=== PATIENT | female | born 1935 | race Caucasian/White ===

== ENCOUNTER 2017-04-23 23:58 | Inpatient (IN) | payer OTHER ==
--- NOTE | 2017-04-24 01:59 | PDOC ---
History of Present Illness - History of Present Illness Initial Comments: 04/24/17 02:08 Patient is an 82 F who was BIBA from [facility], with PMHx of liver transplant, osteoarthritis, anxiety, dementia, anemia, and HTN. The long term reports patient has abdominal pain. However, patient only complains of headache at this time. Denies CP, SOB, nausea, vomiting, or any other complaints. Social Hx: alcohol abuse PCP: Andie Freedman <Narcisa Lucas - Last Filed: 04/24/17 02:20> - General History Source: Patient <NaomiJose J - Last Filed: 04/24/17 19:48> - General Chief Complaint: Pain, Acute Stated Complaint: ABDOMINAL PAIN Time Seen by Provider: 04/24/17 01:54 Past History <Nracisa Lucas - Last Filed: 04/24/17 02:20> - Suicide/Smoking/Psychosocial Hx Smoking History: Unknown if ever smoked Have you smoked in the past 12 months: No Information on smoking cessation initiated: No Hx Alcohol Use: No Drug/Substance Use Hx: No <Jose J Salgado - Last Filed: 04/24/17 19:48> - Past Medical History Allergies/Adverse Reactions: Allergies Allergy/AdvReac Type Severity Reaction Status Date / Time Penicillins Allergy Verified 04/24/17 00:13 Home Medications: Ambulatory Orders Aa/Hydrolyzed Collagen, Whey [Lps 15-30 Liquid] 30 ml PO BID 04/24/17 Azathioprine [Imuran -] 50 mg PO DAILY 04/24/17 Bimatoprost [Lumigan] 1 drop IO HS 04/24/17 Brimonidine Tartrate [Alphagan 0.2% -] 1 drop OU TID 04/24/17 Citalopram Hydrobromide [Citalopram HBr] 20 mg PO DAILY 04/24/17 Cyclosporine [Sandimmune] 25 mg PO BID 04/24/17 Donepezil HCl [Aricept -] 10 mg PO HS 04/24/17 Dorzolamide HCl/Timolol Maleat [Cosopt Eye Drops] 1 drop OU BID 04/24/17 Fluticasone Prop 0.05% Nasal [Flonase -] 1 - 2 spray NS DAILY 04/24/17 Folic Acid 1 mg PO DAILY 04/24/17 Metoprolol Succinate [Toprol Xl] 25 mg PO DAILY 04/24/17 Multivitamin [Multiple Vitamins] 1 each PO DAILY 04/24/17 Nifedipine ER [Procardia Xl -] 90 mg PO DAILY 04/24/17 Ranitidine HCl 150 mg PO BID 04/24/17 Thiamine HCl [Vitamin B-1] 50 mg PO DAILY 04/24/17 Review of Systems - Review of Systems Comments:: 04/24/17 02:10 CONSTITUTIONAL: Absent: fever, no chills, no fatigue EYES: Absent: visual changes ENT: Absent: ear pain, no sore throat CARDIOVASCULAR: Absent: chest pain, no palpitations RESPIRATORY: Absent: cough, no SOB GI: Absent: abdominal pain, no nausea, no vomiting, no constipation, no diarrhea GENITOURINARY: Absent: dysuria, no frequency, no hematuria MUSCULOSKELETAL: Absent: back pain, no arthralgia, no myalgia SKIN: Absent: rash NEURO: Present: headache <Narcisa Lucas - Last Filed: 04/24/17 02:20> *Physical Exam - Vital Signs Last Vital Signs Temp Pulse Resp BP Pulse Ox 98.7 F 88 20 133/85 99 04/24/17 00:21 04/24/17 00:21 04/24/17 00:21 04/24/17 00:21 04/24/17 00:21 - Physical Exam Comments: 04/24/17 02:09 GENERAL: Well-appearing, well-nourished. No apparent distress. HEENT: Normocephalic, atraumatic. PERRL, EOM intact. CARDIOVASCULAR: Normal S1, S2. Regular rate and rhythm. PULMONARY: Clear to auscultation bilaterally. ABDOMEN: Soft, non-distended, non-tender. EXTREMITIES: Normal ROM in all four extremities. No gross deformities. SKIN: Warm, dry. No rash NEUROLOGICAL: Slight tremors. Alert, awake, oriented x3. Answers questions appropriately . <Narcisa Lucas - Last Filed: 04/24/17 02:20> - Vital Signs Last Vital Signs Temp Pulse Resp BP Pulse Ox 98.7 F 88 20 133/85 99 04/24/17 00:21 04/24/17 00:21 04/24/17 00:21 04/24/17 00:21 04/24/17 00:21 <Jose J Salgado - Last Filed: 04/24/17 19:48> Heart Score/ECG Review - ECG Intrepretation Comment:: 04/24/17 02:20 Normal sinus rhythm Abnormal QRS-T angle, consider primary T wave abnormality Vent rate 99 bpm <Narcisa Lucas - Last Filed: 04/24/17 02:20> ED Treatment Course - LABORATORY CBC & Chemistry Diagram: 04/24/17 14:35 04/24/17 14:35 <Jose J Salgado - Last Filed: 04/24/17 19:48> Medical Decision Making - Medical Decision Making 04/24/17 19:45 Dr. Salgado: The scribe's documentation has been prepared under my direction and personally reviewed by me in its entirery. I confirm that the note above accurately reflects all work, treatment, procedures, and medical decision making performed by me. 04/24/17 19:46 patient with complaint of Abdominal pain for the NH. Pt with h/o alcohol abuse , presented tremulous. Pt admitted to [facility] for further care <Jose J Salgado - Last Filed: 04/24/17 19:48> *DC/Admit/Observation/Transfer - Attestations Scribe Attestion: 04/24/17 02:11 Documentation prepared by Narcisa Lucas, acting as medical supervisor for Jose J Salgado MD. <Narcisa Lucas - Last Filed: 04/24/17 02:20> - Discharge Dispostion Admit: Yes <Jose J Salgado - Last Filed: 04/24/17 19:48> Diagnosis at time of Disposition: Alcohol withdrawal, Ileitis, terminal, Colitis - Discharge Dispostion Condition at time of disposition: Stable
[2017-04-24] MEDS ORDERED: LORazepam 2 MG/ML SDV VIAL ONE (02:09)
[2017-04-24 02:31] LABS: BASO % 0.4 % (0-2.0); EOS % 0.2 % (0-4.5); HEMATOCRIT 37.3 % (32.4-45.2); HEMOGLOBIN 12.2 GM/dL (10.7-15.3); LYMPH % 3.9 % (8-40); MCH 32.1 pg (25.7-33.7); MCHC 32.8 g/dl (32.0-36.0); MEAN CELL VOLUME 97.9 fl (80-96); MEAN PLT VOLUME 9.1 fl (7.5-11.1); MONO % 6.9 % (3.8-10.2); NEUT % 88.6 % (42.8-82.8); PLATELET COUNT 207 K/MM3 (134-434); RBC 3.81 M/mm3 (3.60-5.2); RDW 14.8 % (11.6-15.6); WHITE BLOOD COUNT 11.1 K/mm3 (4.0-10.0)
[2017-04-24 02:44] LABS: INR 1.04 (0.82-1.09); PROTHROMBIN TIME (PATIENT) 11.7 SEC (9.98-11.88)
[2017-04-24 02:54] LABS: ALBUMIN 3.1 g/dl (3.4-5.0); ANION GAP 11 (8-16); BILIRUBIN,TOTAL 0.5 mg/dL (0.2-1.0); BLOOD UREA NITROGEN 41 mg/dL (7-18); CALCIUM 8.7 mg/dL (8.5-10.1); CHLORIDE 104 mmol/L (98-107); CO2 26 mmol/L (21-32); CREATININE 1.9 mg/dL (0.55-1.02); GLUCOSE,RANDOM 94 mg/dL (74-106); MAGNESIUM 2.6 mg/dL (1.8-2.4); POTASSIUM 4.8 mmol/L (3.5-5.1); SGOT/AST 193 U/L (15-37); SODIUM 141 mmol/L (136-145); TOT PROT 9.1 g/dl (6.4-8.2)
[2017-04-24 02:57] LABS: ALK PHOS 302 U/L (45-117); LIPASE 202 U/L (73-393); N-TERMINAL BNP 489.77 pg/ml (5-450); SGPT/ALT 131 U/L (12-78)
[2017-04-24] MEDS ORDERED: SODIUM CHLORIDE 1,000 ML IV STA ×2 (03:10→05:21)
[2017-04-24 03:38] LABS: ACETONE SERUM NEGATIVE (NEGATIVE)
[2017-04-24] MEDS ORDERED: LEVOFLOXACIN 500 MG IVPB 500 MG/100 ML BAG IVPB ONE ×2 (06:07→06:31)
[2017-04-24] MEDS ORDERED: METRONIDAZOLE 500 MG PREMIXED 500 MG/100 ML MG IVPB ONE ×2 (06:07→06:31)
[2017-04-24 07:35] LABS: PH,URINE 7.5 (5.0-8.0); URINE APPEARANCE CLEAR; URINE BILIRUBIN NEGATIVE (NEGATIVE); URINE BLOOD NEGATIVE (NEGATIVE); URINE COLOR LT. YELLOW; URINE GLUCOSE (UA) NEGATIVE (NEGATIVE); URINE KETONE NEGATIVE (NEGATIVE); URINE LEUK ESTERASE NEGATIVE (NEGATIVE); URINE NITRITE NEGATIVE (NEGATIVE); URINE UROBILINOGEN 0.2 mg/dL (0.2-1.0)
[2017-04-24 07:40] LABS: URINE PROTEIN 1+ (NEGATIVE)
[2017-04-24 08:48] LABS: EPI CELLS FEW /HPF (FEW); URINE HYALINE CAST 1 /lpf
--- NOTE | 2017-04-24 10:30 | EKG ---
Test Reason : Blood Pressure : / mmHG Vent. Rate : 099 BPM Atrial Rate : 099 BPM P-R Int : 134 ms QRS Dur : 082 ms QT Int : 334 ms P-R-T Axes : 045 003 095 degrees QTc Int : 428 ms NORMAL SINUS RHYTHM ABNORMAL QRS-T ANGLE, CONSIDER PRIMARY T WAVE ABNORMALITY ABNORMAL ECG NO PREVIOUS ECGS AVAILABLE Confirmed by SATYA JEONG MD ([id number]) on 04/24/2017 10:30:23 AM Referred By: Confirmed By:SATYA JEONG MD
--- NOTE | 2017-04-24 11:21 | HP ---
Admitting History and Physical - Primary Care Physician PCP: Tano Chaves - Admission Chief Complaint: "they brought me here" History of Present Illness: is an 82 year old female with pmh of dementia, alcohol abuse, s/p liver transplant(1993), CKD-3, and glaucoma who was BIBA from [facility] for abdominal pain. pt unable to elaborate on the abd pain. She c/o of a mild headache otherwise she reports she feels same, but uncomfortable in bed. Pt denies any fever, chills, chest pain, sob, n/v/d or unilateral weakness. History Source: Patient Limitations to Obtaining History: Dementia, Poor Historian - Past Medical History ASSOCIATE MARKETING MANAGER: Yes: Dementia Cardiovascular: Yes: HTN, Murmur Gastrointestinal: Yes: Pancreatitis Renal/: Yes: Renal Inusuff (CKD-3) - Past Surgical History Past Surgical History: Yes: Liver Transplant (1993) - Smoking History Smoking history: Unknown if ever smoked Have you smoked in the past 12 months: No - Alcohol/Substance Use Hx Alcohol Use: No - Social History Usual Living Arrangement: Yes: Shelter Home Medications - Allergies Allergies/Adverse Reactions: Allergies Allergy/AdvReac Type Severity Reaction Status Date / Time Penicillins Allergy Verified 04/24/17 00:13 - Home Medications Home Medications: Ambulatory Orders Aa/Hydrolyzed Collagen, Whey [Lps 15-30 Liquid] 30 ml PO BID 04/24/17 Azathioprine [Imuran -] 50 mg PO DAILY 04/24/17 Bimatoprost [Lumigan] 1 drop IO HS 04/24/17 Brimonidine Tartrate [Alphagan 0.2% -] 1 drop OU TID 04/24/17 Citalopram Hydrobromide [Citalopram HBr] 20 mg PO DAILY 04/24/17 Cyclosporine [Sandimmune] 25 mg PO BID 04/24/17 Donepezil HCl [Aricept -] 10 mg PO HS 04/24/17 Dorzolamide HCl/Timolol Maleat [Cosopt Eye Drops] 1 drop OU BID 04/24/17 Fluticasone Prop 0.05% Nasal [Flonase -] 1 - 2 spray NS DAILY 04/24/17 Folic Acid 1 mg PO DAILY 04/24/17 Metoprolol Succinate [Toprol Xl] 25 mg PO DAILY 04/24/17 Multivitamin [Multiple Vitamins] 1 each PO DAILY 04/24/17 Nifedipine ER [Procardia Xl -] 90 mg PO DAILY 04/24/17 Ranitidine HCl 150 mg PO BID 04/24/17 Thiamine HCl [Vitamin B-1] 50 mg PO DAILY 04/24/17 Family Disease History - Family Disease History Family History: Denies Review of Systems Findings/Remarks: As per [facility] Physical Examination Vital Signs: Vital Signs Temperature 100.7 F H 04/24/17 06:42 Pulse Rate 97 H 04/24/17 09:04 Respiratory Rate 18 04/24/17 09:04 Blood Pressure 131/78 04/24/17 09:04 O2 Sat by Pulse Oximetry (%) 95 04/24/17 09:04 Constitutional: Yes: No Distress, Calm, Thin Cardiovascular: Yes: Regular Rate and Rhythm, Murmur Respiratory: Yes: WNL, Regular, CTA Bilaterally Gastrointestinal: Yes: Normal Bowel Sounds, Soft, Tenderness (RUQ). No: Distention Extremities: Yes: WNL Edema: No Neurological: Yes: WNL, Alert Psychiatric: Yes: WNL, Alert Labs: CBC, BMP 04/24/17 02:10 04/24/17 02:10 Imaging - Results Chest X-ray: Report Reviewed Cat Scan: Report Reviewed Problem List - Problems (1) Colitis Assessment/Plan: RUQ tenderness, right sided colitis with fever/tachycardia, leukocytosis Pt received levaquin and flagyl in ED Vancomycin po per GI Meropenem per ID NPO IVF Code(s): K52.9 - NONINFECTIVE GASTROENTERITIS AND COLITIS, UNSPECIFIED (2) Sepsis Assessment/Plan: as above Code(s): A41.9 - SEPSIS, UNSPECIFIED ORGANISM (3) Elevated LFTs Assessment/Plan: s/p liver transplant, can't tell if elevation in lfts is chronic/acute Pt managed by [facility] transplant team prev Plan for transfer to [facility] for further management Code(s): R79.89 - OTHER SPECIFIED ABNORMAL FINDINGS OF BLOOD CHEMISTRY (4) History of liver transplant Assessment/Plan: Elevated LFTs with RUQ tenderness, fever, tachycardia GI consulted As above Code(s): Z94.4 - LIVER TRANSPLANT STATUS (5) Abdominal tenderness Assessment/Plan: As above Code(s): R10.819 - ABDOMINAL TENDERNESS, UNSPECIFIED SITE Qualifiers: Abdominal location: right upper quadrant Presence of rebound: present Qualified Code(s): R10.821 - Right upper quadrant rebound abdominal tenderness (6) Alcohol abuse Assessment/Plan: Past history, resolved Etoh level neg Code(s): F10.10 - ALCOHOL ABUSE, UNCOMPLICATED (7) CKD (chronic kidney disease) stage 3, GFR 30-59 ml/min Assessment/Plan: Baseline Cr 1.5, Cr 1.9 today, most likely secondary to prerenal/colitis/sepsis IVF Code(s): N18.3 - CHRONIC KIDNEY DISEASE, STAGE 3 (MODERATE) (8) HTN (hypertension) Assessment/Plan: Allow permissive htn in the setting of sepsis Code(s): I10 - ESSENTIAL (PRIMARY) HYPERTENSION (9) Glaucoma Assessment/Plan: Continue home meds Code(s): H40.9 - UNSPECIFIED GLAUCOMA (10) Depression Assessment/Plan: continue home med Code(s): F32.9 - MAJOR DEPRESSIVE DISORDER, SINGLE EPISODE, UNSPECIFIED Qualifiers: Psychotic features: without psychotic features (11) Dementia Assessment/Plan: stable,continue home meds Code(s): F03.90 - UNSPECIFIED DEMENTIA WITHOUT BEHAVIORAL DISTURBANCE Assessment/Plan is s/p liver transplant-1993. Pt admitted for evaluation of abd pain. Pt febrile, mild leukocytosis, tachycardic, elevated lfts, worsening renal function, abdominal tenderness ruq on palpation, abd CT suggestive of right sided colitis, cirrhotic liver. Pt on cyclosporine and Imuran. Pt is a first timer here, last admitted [facility] in de[facility] for fall. Pt previously managed at [facility] transplant team. GI physician spoke with pt's son and [facility] admitting physician. Pt febrile with chills, Motrin 200mg given per Nephrology Dispo: Transfer to [facility] for further workup and management
[2017-04-24] MEDS ORDERED: azaTHIOprine 50 MG TABLET PO SCH (12:45)
[2017-04-24] MEDS ORDERED: SODIUM CHLORIDE 500 ML IV STA (13:00)
--- NOTE | 2017-04-24 13:04 | CON.GI ---
Consult Consult Specialty:: GI Referred by:: Dr. Ludwig Reason for Consultation:: Colitis - History of Present Illness Chief Complaint: Abdominal Pain History of Present Illness: 82F admitted through [facility] ER this morning. Transferred from [place] for evaluation of abdominal pain. She has never been to [facility] previously. Ms. Tao is somewhat of a poor historian. She tells me that she has abdominal pain however cannot tell me how long this has been occurring. There has been no reported hematochezia / diarrhea. There has been no vomiting / hematemesis. In ER WBC noted 11, Cr 1.9, elevated transainases and ALP. A non-cotrast CT scan of the abdomen and pelvis revealed a right sided colitis with terminal ileum affected as well, cirrhotic appearing liver, 9mm CBD and 1cm cystic pancreatic lesion. initial temp was 98.4 with temp spike to 100.7 later this afternoon. Levaquin and flagyl were administered. Ms. Tao has a history of Liver X-plant. I called Dr. Roman's office, her liver transplant attending from [facility] and spoke to Jess the POTTERY KILN BUILDER working with him. She tells me that Ms. 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 At that time her baseline labs revealed Cr: 1.69 AST: 68 ALT: 53 ALP: 163. She has been living in [place] since this past August and is maintained on cyclosporine 25mg PO BID as well as Imuran 50mg PO daily and there was no mention of non-complaince with her medications. It is unclear if she received any antibiotics during her stay at [facility]. - History Source History Provided By: Patient, Medical Record - Past Medical History SIDEROGRAPHER: Yes: Dementia (somewhat of a poor historian) Cardio/Vascular: Yes: HTN, Murmur Gastrointestinal: Yes: Pancreatitis (chart. unclear) Hepatobiliary: Yes: Hepatitis C (cirrhosis, s/p OLT 1993) Renal/: Yes: Renal Inusuff (CKD-3) - Past Surgical History Past Surgical History: Yes: Liver Transplant (1993) Additional Surgical History: BTL - Alcohol/Substance Use Hx Alcohol Use: No History of Substance Use: reports: None - Smoking History Smoking history: Never smoked Have you smoked in the past 12 months: No - Social History Usual Living Arrangement: Retirement ADL: Support Services Place of : Other ([place]) History of Recent Travel: No Home Medications - Allergies Allergies/Adverse Reactions: Allergies Allergy/AdvReac Type Severity Reaction Status Date / Time Penicillins Allergy Verified 04/24/17 00:13 - Home Medications Home Medications: Ambulatory Orders Aa/Hydrolyzed Collagen, Whey [Lps 15-30 Liquid] 30 ml PO BID 04/24/17 Azathioprine [Imuran -] 50 mg PO DAILY 04/24/17 Bimatoprost [Lumigan] 1 drop IO HS 04/24/17 Brimonidine Tartrate [Alphagan 0.2% -] 1 drop OU TID 04/24/17 Citalopram Hydrobromide [Citalopram HBr] 20 mg PO DAILY 04/24/17 Cyclosporine [Sandimmune] 25 mg PO BID 04/24/17 Donepezil HCl [Aricept -] 10 mg PO HS 04/24/17 Dorzolamide HCl/Timolol Maleat [Cosopt Eye Drops] 1 drop OU BID 04/24/17 Fluticasone Prop 0.05% Nasal [Flonase -] 1 - 2 spray NS DAILY 04/24/17 Folic Acid 1 mg PO DAILY 04/24/17 Metoprolol Succinate [Toprol Xl] 25 mg PO DAILY 04/24/17 Multivitamin [Multiple Vitamins] 1 each PO DAILY 04/24/17 Nifedipine ER [Procardia Xl -] 90 mg PO DAILY 04/24/17 Ranitidine HCl 150 mg PO BID 04/24/17 Thiamine HCl [Vitamin B-1] 50 mg PO DAILY 04/24/17 Family Disease History - Family Disease History Family Disease History: Other: Son (2, healthy) Review of Systems - Review of Systems Constitutional: reports: Fever, Unintentional Wgt. Loss (per her son Angelo), Weakness HENT: reports: Difficult Swallowing (Per her son angelo) Physical Exam-GI Vital Signs: Vital Signs Temperature 100.7 F H 04/24/17 06:42 Pulse Rate 97 H 04/24/17 09:04 Respiratory Rate 18 04/24/17 09:04 Blood Pressure 131/78 04/24/17 09:04 O2 Sat by Pulse Oximetry (%) 95 04/24/17 09:04 Constitutional: Yes: Calm Eyes: No: Sclera Icterus Cardiovascular: Yes: Regular Rate and Rhythm. No: Murmur Respiratory: Yes: Diminished (at bases, however poor inspiratory effort) Gastrointestinal Inspection: Yes: Scars (Beatrice Ravindra scar in upper abdomen with incisional hernia in the central portion of the scar. + midline vertical pelvic surgical scar) ...Auscultate: Yes: Normoactive Bowel Sounds ...Palpate: Yes: Guarding, Tenderness (TTP diffusely R>L) ...Percussion: No: Tympanitic ...Rectal Exam: Yes: Other (No blood, rowe stool in rectal vault, tracely guaiac positive.) Edema: No (No LE edema) Neurological: Yes: Alert Labs: CBC, BMP 04/24/17 02:10 04/24/17 02:10 INR, PTT INR 1.04 (0.82-1.09) 04/24/17 02:10 Hepatic Panel Total Bilirubin 0.5 mg/dL (0.2-1.0) 04/24/17 02:10 AST 193 U/L (15-37) H 04/24/17 02:10 ALT 131 U/L (12-78) H 04/24/17 02:10 Alkaline Phosphatase 302 U/L (45-117) H 04/24/17 02:10 Albumin 3.1 g/dl (3.4-5.0) L 04/24/17 02:10 Imaging - Results Cat Scan: Report Reviewed, Image Reviewed Problem List - Problems (1) Colitis Assessment/Plan: right sided colitis with associated fevers. Differential would need to include infectious etiology, including C. Diff given that she was recently admitted to a hospital, is immunocomprimised and resides in [place]. Ischemic colitis a possibility as well however no rectal bleeding. LFTs elevated as well. this is unclear if this is secondary to her current immunosuppression in setting of worsening renal function, Ms. Tao not taking her medications (she does reside in a NH however. Her son describes poor PO intake at times), reactive acute on chronic secondary to infectious / inflammatory process or combination. INR normal on admission. Plan would be as follows: As above, I spoke with Dr. Roman's POT[employer] KILN BUILDER Jess who recommended the patient be transferred to [facility] for continued management. She told me the service attending was Dr. Cornejo. Cyclosporine levels can be more readily obtained there as well. I called and spoke to the post transplant fellow [phone] who accepted Ms. Tao for transfer. In the interim: Repeat CBC/CMP was ordered Ms. Tao received Levaquin and Flagyl in the ED. ID was called to help with further ABx coverage given Ms. Tao' PCN allergy and that glagyl can increase cyclosporine levels NPO except meds IV hydration I spoke with Ms. Tao's son Alfred re: her current clinical situation and the transfer. He is in agreement. Dr. Ludwig aware of plan Aspiration precautions Code(s): K52.9 - NONINFECTIVE GASTROENTERITIS AND COLITIS, UNSPECIFIED
[2017-04-24] MEDS ORDERED: SODIUM CHLORIDE 1,000 ML IV SCH ×2 (14:30→15:24)
[2017-04-24] MEDS: BRIMONIDINE TARTRATE 0.2% OPHTHALMIC 5 ML BOTTLE OU SCH ×2 (15:00→23:31)
[2017-04-24] MEDS ORDERED: IBUPROFEN 200 MG TABLET PO ONE (15:13)
[2017-04-24] MEDS ORDERED: PT OWN MED DRAWER 7, Y5N ONE (15:29)
[2017-04-24 15:40] LABS: ALBUMIN 2.4 g/dl (3.4-5.0); ALK PHOS 243 U/L (45-117); ANION GAP 7 (8-16); BILIRUBIN,TOTAL 0.6 mg/dL (0.2-1.0); BLOOD UREA NITROGEN 35 mg/dL (7-18); CALCIUM 8.2 mg/dL (8.5-10.1); CHLORIDE 108 mmol/L (98-107); CO2 26 mmol/L (21-32); CREATININE 1.6 mg/dL (0.55-1.02); GLUCOSE,RANDOM 90 mg/dL (74-106); POTASSIUM 4.7 mmol/L (3.5-5.1); SGOT/AST 124 U/L (15-37); SGPT/ALT 104 U/L (12-78); SODIUM 141 mmol/L (136-145); TOT PROT 7.9 g/dl (6.4-8.2)
--- NOTE | 2017-04-24 15:50 | CON.ID ---
Consult Consult Specialty:: infectious diseases Referred by:: Reason for Consultation:: colitis,fever - History of Present Illness Chief Complaint: abd pain rt side History of Present Illness: 82F admitted this morning.for abd pain.[facility] [place] for evaluation of abdominal pain. Abd pain has been going on for some time duration is unknown,no other issues patient has had liver transplant couple of years back at [place] patient was worked up here and found to have rt sided colitis currently patients main complaint is rt sided abd pain and she is very tender there patient was seen by gi and started on oral vanco - History Source History Provided By: Medical Record Limitations to Obtaining History: Poor Historian - Past Medical History [employer] RETAILER SALES CONSULTANT: Yes: Dementia Cardio/Vascular: Yes: HTN, Murmur Gastrointestinal: Yes: Pancreatitis Hepatobiliary: Yes: Hepatitis C (cirrhosis, s/p OLT 1993) Renal/: Yes: Renal Inusuff (CKD-3) - Past Surgical History Past Surgical History: Yes: Liver Transplant (1993) Additional Surgical History: BTL - Alcohol/Substance Use Hx Alcohol Use: No History of Substance Use: reports: None - Smoking History Smoking history: Unknown if ever smoked Have you smoked in the past 12 months: No - Social History Usual Living Arrangement: [facility] ADL: Support Services History of Recent Travel: No Home Medications - Allergies Allergies/Adverse Reactions: Allergies Allergy/AdvReac Type Severity Reaction Status Date / Time Penicillins Allergy Verified 04/24/17 00:13 - Home Medications Home Medications: Ambulatory Orders Aa/Hydrolyzed Collagen, Whey [Lps 15-30 Liquid] 30 ml PO BID 04/24/17 Azathioprine [Imuran -] 50 mg PO DAILY 04/24/17 Bimatoprost [Lumigan] 1 drop IO HS 04/24/17 Brimonidine Tartrate [Alphagan 0.2% -] 1 drop OU TID 04/24/17 Citalopram Hydrobromide [Citalopram HBr] 20 mg PO DAILY 04/24/17 Cyclosporine [Sandimmune] 25 mg PO BID 04/24/17 Donepezil HCl [Aricept -] 10 mg PO HS 04/24/17 Dorzolamide HCl/Timolol Maleat [Cosopt Eye Drops] 1 drop OU BID 04/24/17 Fluticasone Prop 0.05% Nasal [Flonase -] 1 - 2 spray NS DAILY 04/24/17 Folic Acid 1 mg PO DAILY 04/24/17 Metoprolol Succinate [Toprol Xl] 25 mg PO DAILY 04/24/17 Multivitamin [Multiple Vitamins] 1 each PO DAILY 04/24/17 Nifedipine ER [Procardia Xl -] 90 mg PO DAILY 04/24/17 Ranitidine HCl 150 mg PO BID 04/24/17 Thiamine HCl [Vitamin B-1] 50 mg PO DAILY 04/24/17 Family Disease History - Family Disease History Family Disease History: Other: Son (2, healthy) Review of Systems - Review of Systems Constitutional: reports: No Symptoms Eyes: reports: No Symptoms HENT: reports: No Symptoms Neck: reports: No Symptoms Cardiovascular: reports: No Symptoms Respiratory: reports: No Symptoms Gastrointestinal: reports: Abdominal Pain Musculoskeletal: reports: No Symptoms Integumentary: reports: No Symptoms Neurological: reports: No Symptoms Endocrine: reports: No Symptoms Hematology/Lymphatic: reports: No Symptoms Psychiatric: reports: No Symptoms Physical Exam Vital Signs: Vital Signs Temperature 101.2 F H 04/24/17 15:15 Pulse Rate 93 H 04/24/17 11:23 Respiratory Rate 19 04/24/17 11:23 Blood Pressure 141/69 04/24/17 11:23 O2 Sat by Pulse Oximetry (%) 99 04/24/17 14:59 Constitutional: Yes: Thin, Other HENT: Yes: Atraumatic, Normocephalic Neck: Yes: Supple, Trachea Midline Cardiovascular: Yes: Regular Rate and Rhythm Respiratory: Yes: Regular, CTA Bilaterally Gastrointestinal: Yes: Hypoactive Bowel Sounds, Tenderness, Other (guarding,no rebound) Musculoskeletal: Yes: Other Extremities: Yes: Other Neurological: Yes: Alert Imaging - Results Chest X-ray: Report Reviewed, Image Reviewed Cat Scan: Report Reviewed, Image Reviewed Assessment/Plan - Problems (1) Colitis Code(s): K52.9 - NONINFECTIVE GASTROENTERITIS AND COLITIS, UNSPECIFIED (2) Sepsise Code(s): A41.9 - SEPSIS, UNSPECIFIED ORGANISM (3) Elevated LFTs Code(s): R79.89 - OTHER SPECIFIED ABNORMAL FINDINGS OF BLOOD CHEMISTRY (4) History of liver transplant Code(s): Z94.4 - LIVER TRANSPLANT STATUS (5) Abdominal tenderness Code(s): R10.819 - ABDOMINAL TENDERNESS, UNSPECIFIED SITE Qualifiers: Abdominal location: right upper quadrant Presence of rebound: present Qualified Code(s): R10.821 - Right upper quadrant rebound abdominal tenderness (6) Alcohol abuse Code(s): F10.10 - ALCOHOL ABUSE, UNCOMPLICATED (7) CKD (chronic kidney disease) stage 3, GFR 30-59 ml/min Code(s): N18.3 - CHRONIC KIDNEY DISEASE, STAGE 3 (MODERATE) (8) HTN (hypertension) Code(s): I10 - ESSENTIAL (PRIMARY) HYPERTENSION (9) Glaucoma Code(s): H40.9 - UNSPECIFIED GLAUCOMA (10) Depression Code(s): F32.9 - MAJOR DEPRESSIVE DISORDER, SINGLE EPISODE, UNSPECIFIED Qualifiers: Psychotic features: without psychotic features (11) Dementia Code(s): F03.90 - UNSPECIFIED DEMENTIA WITHOUT BEHAVIORAL DISTURBANCE plan ]will start patient on meropenam close watch follow cyclosporine levels rest as per primary
[2017-04-24 15:56] LABS: BASO % 0.1 % (0-2.0); HEMATOCRIT 36.2 % (32.4-45.2); HEMOGLOBIN 11.9 GM/dL (10.7-15.3); LYMPH % 5.9 % (8-40); MCH 32.3 pg (25.7-33.7); MCHC 32.8 g/dl (32.0-36.0); MEAN CELL VOLUME 98.5 fl (80-96); MEAN PLT VOLUME 9.7 fl (7.5-11.1); MONO % 7.5 % (3.8-10.2); NEUT % 86.5 % (42.8-82.8); PLATELET COUNT 184 K/MM3 (134-434); RBC 3.68 M/mm3 (3.60-5.2); RDW 14.7 % (11.6-15.6); WHITE BLOOD COUNT 13.8 K/mm3 (4.0-10.0)
--- NOTE | 2017-04-24 16:23 | CONSULT ---
Consult Consult Specialty:: Nephrology Reason for Consultation:: CKD with acute component - History of Present Illness Chief Complaint: sent in for abdominal pain History of Present Illness: Pt is an 82 year old female with pmhx of liver transplant about 10 years ago, anxiety, dementia, anemia, arthritis and HTN who was sent in from the [place] for abdominal pain. She is a poor historian. She currently denies abdominal pain. She denies diarrhea or vomiting. She says she had abdominal pain that was generalized. She had a ct scan which showed colitis. I was toure to evaluate her for elevated creatinine. She denies history of CKD. She denies dysuria or hematuria. She is on cyclosporine 25 mg bid and Imuran 50 mg daily. She was also found to have elevated LFTs. - History Source History Provided By: Patient, Medical Record, Transfer Record - Past Medical History CALL CENTER PROFESSIONAL: Yes: Dementia Cardio/Vascular: Yes: HTN, Murmur Gastrointestinal: Yes: Pancreatitis Hepatobiliary: Yes: Hepatitis C (cirrhosis, s/p OLT 1993) Renal/: Yes: Renal Inusuff (CKD-3) - Past Surgical History Past Surgical History: Yes: Liver Transplant (1993) Additional Surgical History: BTL - Alcohol/Substance Use Hx Alcohol Use: No History of Substance Use: reports: None - Smoking History Smoking history: Unknown if ever smoked Have you smoked in the past 12 months: No - Social History Usual Living Arrangement: Assisted ADL: Support Services History of Recent Travel: No Home Medications - Allergies Allergies/Adverse Reactions: Allergies Allergy/AdvReac Type Severity Reaction Status Date / Time Penicillins Allergy Verified 04/24/17 00:13 - Home Medications Home Medications: Ambulatory Orders Aa/Hydrolyzed Collagen, Whey [Lps 15-30 Liquid] 30 ml PO BID 04/24/17 Azathioprine [Imuran -] 50 mg PO DAILY 04/24/17 Bimatoprost [Lumigan] 1 drop IO HS 04/24/17 Brimonidine Tartrate [Alphagan 0.2% -] 1 drop OU TID 04/24/17 Citalopram Hydrobromide [Citalopram HBr] 20 mg PO DAILY 04/24/17 Cyclosporine [Sandimmune] 25 mg PO BID 04/24/17 Donepezil HCl [Aricept -] 10 mg PO HS 04/24/17 Dorzolamide HCl/Timolol Maleat [Cosopt Eye Drops] 1 drop OU BID 04/24/17 Fluticasone Prop 0.05% Nasal [Flonase -] 1 - 2 spray NS DAILY 04/24/17 Folic Acid 1 mg PO DAILY 04/24/17 Metoprolol Succinate [Toprol Xl] 25 mg PO DAILY 04/24/17 Multivitamin [Multiple Vitamins] 1 each PO DAILY 04/24/17 Nifedipine ER [Procardia Xl -] 90 mg PO DAILY 04/24/17 Ranitidine HCl 150 mg PO BID 04/24/17 Thiamine HCl [Vitamin B-1] 50 mg PO DAILY 04/24/17 Family Disease History - Family Disease History Family Disease History: Other: Son (2, healthy) Review of Systems - Review of Systems Constitutional: reports: Malaise. denies: Chills, Fever Eyes: reports: No Symptoms HENT: reports: No Symptoms Neck: reports: No Symptoms Cardiovascular: reports: No Symptoms Respiratory: reports: No Symptoms Gastrointestinal: reports: Abdominal Pain. denies: Diarrhea, Vomiting Genitourinary: reports: No Symptoms Musculoskeletal: reports: Muscle Weakness Integumentary: reports: No Symptoms Neurological: reports: No Symptoms Endocrine: reports: No Symptoms Hematology/Lymphatic: reports: No Symptoms Psychiatric: reports: No Symptoms Physical Exam Vital Signs: Vital Signs Temperature 101.2 F H 04/24/17 15:15 Pulse Rate 93 H 04/24/17 11:23 Respiratory Rate 19 04/24/17 11:23 Blood Pressure 141/69 04/24/17 11:23 O2 Sat by Pulse Oximetry (%) 99 04/24/17 14:59 Constitutional: Yes: Calm Eyes: Yes: Conjunctiva Clear HENT: Yes: Atraumatic Cardiovascular: Yes: S1, S2 Respiratory: Yes: CTA Bilaterally Gastrointestinal: Yes: Soft, Other (surgical scars) Renal/: Yes: Incontinence Musculoskeletal: Yes: Muscle Weakness Extremities: Yes: WNL Edema: No Integumentary: No: Rash Neurological: Yes: Oriented Psychiatric: Yes: Oriented Labs: CBC, BMP 04/24/17 14:35 04/24/17 14:35 Laboratory Tests 04/24/17 04/24/17 04/24/17 02:10 02:10 02:10 WBC 11.1 H Hgb 12.2 Plt Count 207 PT with INR 11.70 INR 1.04 Sodium Potassium Chloride Carbon Dioxide Anion Gap BUN Creatinine Lactic Acid AST ALT Alkaline Phosphatase Urine Protein Urine Blood Alcohol, Quantitative Acetone, Qual Negative L 04/24/17 04/24/17 04/24/17 02:10 02:10 06:15 WBC Hgb Plt Count PT with INR INR Sodium 141 Potassium 4.8 Chloride 104 Carbon Dioxide 26 Anion Gap 11 BUN 41 H Creatinine 1.9 H Lactic Acid 3.0 H* 1.9 AST 193 H ALT 131 H Alkaline Phosphatase 302 H Urine Protein Urine Blood Alcohol, Quantitative Acetone, Qual 04/24/17 04/24/17 04/24/17 06:15 07:17 14:35 WBC 13.8 H Hgb 11.9 Plt Count 184 PT with INR INR Sodium Potassium Chloride Carbon Dioxide Anion Gap BUN Creatinine Lactic Acid AST ALT Alkaline Phosphatase Urine Protein 1+ H Urine Blood Negative Alcohol, Quantitative < 5.0 Acetone, Qual 04/24/17 14:35 WBC Hgb Plt Count PT with INR INR Sodium 141 Potassium 4.7 Chloride Carbon Dioxide 26 Anion Gap 7 L BUN 35 H Creatinine 1.6 H Lactic Acid AST 124 H ALT 104 H Alkaline Phosphatase 243 H Urine Protein Urine Blood Alcohol, Quantitative Acetone, Qual Imaging - Results Cat Scan: Report Reviewed (negative hydronephrosis) Problem List - Problems (1) Abdominal tenderness Code(s): R10.819 - ABDOMINAL TENDERNESS, UNSPECIFIED SITE Qualifiers: Abdominal location: right upper quadrant Presence of rebound: present Qualified Code(s): R10.821 - Right upper quadrant rebound abdominal tenderness (2) CKD (chronic kidney disease) stage 3, GFR 30-59 ml/min Code(s): N18.3 - CHRONIC KIDNEY DISEASE, STAGE 3 (MODERATE) (3) Colitis Code(s): K52.9 - NONINFECTIVE GASTROENTERITIS AND COLITIS, UNSPECIFIED (4) Dementia Code(s): F03.90 - UNSPECIFIED DEMENTIA WITHOUT BEHAVIORAL DISTURBANCE Assessment/Plan Current Medications Generic Name Dose Route Start Last Admin Trade Name Freq PRN Reason Stop Dose Admin Amino Acids 30 ml 04/24/17 17:30 Prosource No Carb Liquid Pkt PO BIDWM ROB Azathioprine 50 mg 04/24/17 12:45 04/24/17 16:08 Imuran - PO 50 mg DAILY ROB Administration Brimonidine Tartrate 1 drop 04/24/17 14:00 04/24/17 15:00 Alphagan 0.2% - OU 1 drop TID ROB Administration Citalopram Hydrobromide 20 mg 04/25/17 10:00 Celexa - PO DAILY ROB Donepezil HCl 10 mg 04/24/17 22:00 Aricept - PO HS ROB Dorzolamide HCl 1 drop 04/24/17 22:00 Trusopt 2% OU BID ROB Fluticasone Propionate 1 - 2 spray 04/25/17 10:00 Flonase - NS DAILY ROB Folic Acid 1 mg 04/25/17 10:00 Folic Acid - PO DAILY ROB Sodium Chloride 1,000 mls @ 75 mls/hr 04/24/17 15:24 04/24/17 16:07 Normal Saline - IV 75 mls/hr ASDIR ROB Administration Meropenem 1 gm in 20 mls @ 240 mls/hr 04/24/17 16:00 Merrem (Restricted To Id) - IVPUSH BID [facility] Metoprolol Succinate 25 mg 04/25/17 10:00 Toprol Xl - PO DAILY [facility] Multivitamins/Minerals/Vitamin C 1 tab 04/25/17 10:00 Tab-A-Vit - PO DAILY [facility] Nifedipine 90 mg 04/25/17 10:00 Procardia Xl - PO DAILY [facility] Non-Formulary Medication 1 drop 04/24/17 22:00 Bimatoprost [Lumigan] IO HS [facility] Non-Formulary Medication 25 mg 04/24/17 22:00 Cyclosporine [Sandimmune] PO BID ROB Ranitidine HCl 150 mg 04/24/17 22:00 Zantac - PO BID [facility] Thiamine HCl 50 mg 04/25/17 10:00 Vitamin B1 - PO DAILY [facility] Timolol Maleate 1 drop 04/24/17 22:00 Timoptic 0.5% OU BID [facility] Vancomycin HCl 125 mg 04/24/17 18:00 Vancomycin Oral Solution PO Q6HPO [facility] Impression 1. CKD with acute component 2. transaminitis 3. hx of liver transplant 4. colitis 5. sepsis 6. gerd 7. dementia 8. hx hep c 9. htn 10. anemia 11. anxiety Plan - repeat labs shows improvement in creatinine - discussed case with pmd and with GI - pt is up for transfer to [facility] - check urine lytes and cell support operator - check renal ultrasound - recommend IV hydration - recommend ID eval for abx - check cyclosporine level - monitor volume status closely - will follow pt Dr Mcfarlane
[2017-04-24] MEDS ORDERED: AMINO ACIDS/PROTEIN HYDROLYS 30 ML LIQUID.PKT PO SCH (17:30)
[2017-04-24] MEDS ORDERED: VANCOMYCIN 250 MG/5 ML ORAL SOLUTION PO SCH (18:00)
[2017-04-24] MEDS: MEROPENEM 1 GM PUSH 1 GM/20 ML DISP.SYRIN IVPUSH SCH ×2 (18:02→23:30)
[2017-04-24 20:31] VITALS: BMI 15.5
[2017-04-24 21:44] VITALS: BP 116/58; PULSE 82; TEMP 98.4
[2017-04-24] MEDS ORDERED: CYCLOSPORINE 25 MG PO SCH (22:00)
[2017-04-24] MEDS ORDERED: RANITIDINE HCL 150 MG TABLET (FP) PO SCH (22:00)
[2017-04-24] MEDS ORDERED: PATIENT'S OWN MEDICATION (NON-FORMULARY) (Bimatoprost [Lumigan] 1 DROP) IO SCH (22:00)
[2017-04-24] MEDS ORDERED: PATIENT'S OWN MEDICATION (NON-FORMULARY) (Dorzolamide Hcl/Timolol Maleat [Cosopt Eye Drops OU SCH (22:00)
[2017-04-24] MEDS ORDERED: DONEPEZIL HCL 10 MG TABLET (FP) PO SCH (22:00)
[2017-04-24] MEDS: TIMOLOL 0.5% OPHTHALMIC SOL 5 ML BOTTLE OU SCH ×2 (23:31→23:35)
[2017-04-24] MEDS: DORZOLAMIDE 2% HCL OPHTHALMIC SOLUTION 10 ML BOTTLE OU SCH ×2 (23:32→23:35)
[2017-04-25] MEDS ORDERED: CITALOPRAM HYDROBROMIDE 20 MG TABLET (FP) PO SCH (10:00)
[2017-04-25] MEDS ORDERED: MULTIVITAMINS (DAILY MVI) TABLET (FP) PO SCH (10:00)
[2017-04-25] MEDS ORDERED: METOPROLOL SUCCINATE 25 MG TAB.SR.24H (FP) PO SCH (10:00)
[2017-04-25] MEDS ORDERED: FOLIC ACID 1 MG TABLET (FP) PO SCH (10:00)
[2017-04-25] MEDS ORDERED: FLUTICASONE PROP 0.05% 16 GM NASAL SPRAY NS SCH (10:00)
[2017-04-25] MEDS ORDERED: THIAMINE HCL 100 MG TABLET (FP) PO SCH (10:00)
[2017-04-25] MEDS ORDERED: NIFEdipine E.R. 90 MG TABLET (FP) PO SCH (10:00)
--- NOTE | 2017-04-25 10:10 | HOSP ---
Subjective - Review of Symptoms Events since last encounter: Hospitalist Encounter Notified by RN that the patient of Dr. Ludwig's will be transferred to [facility], and that a consent for transfer needs to be obtained from the patient's son. Arrived to floor, notified patient's son Mr. Christiano Thomas of the pending transfer and he agreed and was aware, RN received verbal confirmation as well. Assessed the patient at bedside, she is asleep but easily arousable, oriented at baseline- follows simple commands PE performed- see notes A/P This is an 82 year old female with pmh of dementia, alcohol abuse, s/p liver transplant(1993), CKD-3, and glaucoma who was BIBA from [facility] for abdominal pain. pt unable to elaborate on the abd pain. Obtain Consent from son to transfer patient via telephone Physical Examination Vital Signs: Vital Signs Temperature 98.4 F 04/24/17 21:44 Pulse Rate 82 04/24/17 21:44 Respiratory Rate 18 04/24/17 21:44 Blood Pressure 116/58 04/24/17 21:44 O2 Sat by Pulse Oximetry (%) 98 04/24/17 21:00 Constitutional: Yes: Ashen (Jaundice), Cachectic, Pallor Eyes: Yes: PERRL, Sclera Icterus HENT: Yes: WNL, Atraumatic, Normocephalic Neck: Yes: WNL, Supple, Trachea Midline Cardiovascular: Yes: Regular Rate and Rhythm, S1, S2 Respiratory: Yes: Diminished (at bases), Other (surgical scars) Gastrointestinal: Yes: Tenderness (generalized), Tenderness, Epigastrium ...Rectal Exam: Yes: Deferred Renal/: Yes: Incontinence Breast(s): Yes: WNL Musculoskeletal: Yes: WNL Extremities: Yes: WNL Peripheral Pulses WNL: Yes Integumentary: Yes: Jaundice Neurological: Yes: Alert, Confusion, Cran Nerves II-XII Intact Psychiatric: Yes: Alert Labs: CBC, BMP 04/24/17 14:35 04/24/17 14:35 Labs Lab Results: CBC, BMP 04/24/17 14:35 04/24/17 14:35 Laboratory Results - last 24 hr 04/24/17 04/24/17 04/24/17 14:35 14:35 20:40 WBC 13.8 H RBC 3.68 Hgb 11.9 Hct 36.2 MCV 98.5 H MCH 32.3 MCHC 32.8 RDW 14.7 Plt Count 184 MPV 9.7 Neutrophils % 86.5 H Lymphocytes % 5.9 L D Monocytes % 7.5 Eosinophils % 0.0 D Basophils % 0.1 Sodium 141 Potassium 4.7 Chloride 108 H Carbon Dioxide 26 Anion Gap 7 L BUN 35 H Creatinine 1.6 H Creat Clearance w eGFR 30.78 Random Glucose 90 Calcium 8.2 L Total Bilirubin 0.6 AST 124 H ALT 104 H Alkaline Phosphatase 243 H Total Protein 7.9 Albumin 2.4 L Ur Random Sodium Ur Random Potassium Ur Random Chloride Urine Creatinine 58.2 04/24/17 20:40 WBC RBC Hgb Hct MCV MCH MCHC RDW Plt Count MPV Neutrophils % Lymphocytes % Monocytes % Eosinophils % Basophils % Sodium Potassium Chloride Carbon Dioxide Anion Gap BUN Creatinine Creat Clearance w eGFR Random Glucose Calcium Total Bilirubin AST ALT Alkaline Phosphatase Total Protein Albumin Ur Random Sodium 93 Ur Random Potassium 29.2 Ur Random Chloride 85 Urine Creatinine Intake & Output 04/22/17 04/23/17 04/24/17 04/25/17 23:59 23:59 23:59 23:59 Intake Total 1555 Balance 1555 Weight 41.095 kg Vital Signs - 24 hr 04/24/17 04/24/17 04/24/17 11:05 11:23 14:59 Temperature 100.2 F H 100.2 F H Pulse Rate 93 H 93 H Respiratory 19 19 Rate Blood Pressure 141/69 141/69 O2 Sat by Pulse 99 Oximetry (%) 04/24/17 04/24/17 04/24/17 15:15 18:00 18:13 Temperature 101.2 F H 99.6 F Pulse Rate 99 H Respiratory 18 Rate Blood Pressure 128/61 O2 Sat by Pulse Oximetry (%) 04/24/17 04/24/17 21:00 21:44 Temperature 98.4 F Pulse Rate 82 Respiratory 18 18 Rate Blood Pressure 116/58 O2 Sat by Pulse 98 Oximetry (%)
== END 2017-04-24 23:45 | disposition short-term general hospital (02) | DRG 872 ==
LOC: JER 23:58 → JERBED 04-24 06:00 → UNDOADMIN 04-24 06:07 → JERBED 04-24 06:07 → J5S 04-24 10:53
PROVIDERS: ADMIT Internal Medicine; ATTEND Internal Medicine
DX: A41.9 Sepsis, unspecified organism (principal); Z94.4 Liver transplant status; R64 Cachexia; Z68.1 Body mass index [BMI] 19.9 or less, adult; R65.20 Severe sepsis without septic shock; N18.3 Chronic kidney disease, stage 3 (moderate); I12.9 Hypertensive chronic kidney disease with stage 1 through stage 4 chronic kidney disease, or unspecified chronic kidney disease; K52.9 Noninfective gastroenteritis and colitis, unspecified; R74.0 Nonspecific elevation of levels of transaminase and lactic acid dehydrogenase [LDH]; M19.90 Unspecified osteoarthritis, unspecified site; F41.9 Anxiety disorder, unspecified; F03.90 Unspecified dementia, unspecified severity, without behavioral disturbance, psychotic disturbance, mood disturbance, and anxiety; F10.10 Alcohol abuse, uncomplicated; Y90.0 Blood alcohol level of less than 20 mg/100 ml; H40.9 Unspecified glaucoma; F32.9 Major depressive disorder, single episode, unspecified; K21.9 Gastro-esophageal reflux disease without esophagitis
CPT/HCPCS: 36415; 71045-TC; 74176-TC; 80053; 80307; 81003; 81015; 82009; 82436; 82550; 82570; 83605; 83690; 83735; 83880; 84133; 84300; 84484; 85025; 85610; 87040; 87086; 93005; 93010; 99284-25